=== PATIENT | female | born 1985 | race Asian ===

== ENCOUNTER 2020-11-25 09:27 | Emergency (ER) | payer OTHER ==
[~2020-11-25] VITALS: Ht 170.2 cm; Wt 118.8 kg
[2020-11-25 09:37] VITALS: BP 132/79; TEMP 98.8
== END 2020-11-25 12:09 | disposition home or self-care (01) ==
LOC: ED 09:27
DX: J20.9 Acute bronchitis, unspecified (principal); N39.0 Urinary tract infection, site not specified; F17.210 Nicotine dependence, cigarettes, uncomplicated; Z03.818 Encounter for observation for suspected exposure to other biological agents ruled out
CPT/HCPCS: 81000; 81025; 87086; 87088; 87635; 99283; U0003